=== PATIENT | female | born 1945 | race Caucasian/White ===

== ENCOUNTER 2023-11-09 02:59 | Emergency (ER) | payer BC, MEDICARE ==
[2023-11-09] MEDS ORDERED: Pantoprazole 40 MG VIAL ONE (03:34)
[2023-11-09] MEDS ORDERED: fentaNYL 50 mcg/mL 1 mL Vial ONE (03:34)
[2023-11-09 03:35] LABS: #Basophils 0.1 thou/uL (0.0-0.2); #Eosinphils 0.1 thou/uL (0.0-0.7); #Lymphocytes 1.5 thou/uL (1.20-3.40); #Monocytes 0.6 thou/uL (0.11-0.59); %Basophils 0.7 % (0.0-1.0); %Eosinophils 1.2 % (0.0-10.0); %Lymphocytes 16.2 % (21.0-51.0); %Monocytes 6.3 % (0.0-10.0); %Neutrophils 75.7 % (42.0-75.0); Hematocrit 42.4 % (36.0-47.0); Hemoglobin 14.5 g/dL (12.0-16.0); Mean Corpuscular HGB CONC 34.2 g/dL (32.0-36.0); Mean Corpuscular Hemoglobin 32.2 pg (27.0-31.0); Mean Corpuscular Volume 94.3 fl (78.0-98.0); Mean Platelet Volume 6.2 fL (7.4-10.4); Platelet Count 190 10x3/uL (130-400); RBC Distribution Width 11.6 % (11.5-14.5); Red Blood Cell (RBC) Count 4.49 mill/uL (4.20-5.40); White Blood Cell (WBC) Count 9.3 10x3/uL (4.8-10.8)
[2023-11-09 03:37] LABS: Bilirubin Negative (Negative); Blood, Urine Trace (Negative); Clarity Clear (Clear); Glucose, Urine (Dipstick) Negative (Negative); Ketone, Urine Negative (Negative); Leukocyte Negative (Negative); Nitrite Negative (Negative); Protein, Urine (Dipstick) Negative (Neg-Trace); Urobilinogen 0.2 mg/dL (Less than 2); pH, Urine 5.5 (5.0-9.0)
[2023-11-09 03:38] LABS: Specific Gravity, Urine 1.024 (1.002-1.036)
[2023-11-09 03:40] LABS: Bacteria/HPF None Seen HPF (None Seen); CAUTI Indications for Culture Pelvic or flank pain; RBC/HPF 0-3 HPF (0-3); WBC/HPF 0-3 HPF (0-3)
[2023-11-09 03:41] LABS: Urine Culture Reflex No No
[2023-11-09 03:49] LABS: Troponin I Less than 0.010 ng/mL (< 0.028)
[2023-11-09 03:50] LABS: ALT (SGPT) 26 U/L (8-55); AST (SGOT) 22 U/L (5-34); Albumin 3.7 g/dL (3.4-4.8); Alkaline Phosphatase 51 U/L (40-110); Anion Gap 15 mmol/L (10-20); BUN (Urea Nitrogen) 23 mg/dL (9.8-20.1); Bilirubin, Total 0.4 mg/dL (0.2-1.2); Calc. Creatinine Clearance 0 mL/min (70-130); Carbon Dioxide 23 mmol/L (23-31); Chloride 103 mmol/L (98-107); Estimated GFR 56; Globulin 2.9 g/dL (2.4-3.5); Glucose 127 mg/dL (83-110); Lipase 70 U/L (8-78); Potassium 3.4 mmol/L (3.5-5.1); Protein, Total 6.6 g/dL (5.8-8.1); Sodium 138 mmol/L (136-145)
[2023-11-09] MEDS ORDERED: metroNIDAZOLE 500 MG TAB ONE (04:29)
[2023-11-09] MEDS ORDERED: Cipro 250 MG TAB ONE (04:29)
[2023-11-09] MEDS ORDERED: Ketorolac Tromethamine 30 MG (1 mL) VIAL ONE (04:33)
[2023-11-09] MEDS ORDERED: Promethazine 25 MG TAB ONE (04:40)
[2023-11-09] MEDS ORDERED: Iopamidol 370 76% 100 ML VIAL ONE (09:00)
== END 2023-11-09 04:54 | disposition home or self-care (01) ==
LOC: NAV ERS 02:59
DX: K57.92 Diverticulitis of intestine, part unspecified, without perforation or abscess without bleeding (principal); I10 Essential (primary) hypertension; Z79.899 Other long term (current) drug therapy; Z87.891 Personal history of nicotine dependence
CPT/HCPCS: 71045; 74177; 80053; 81001; 83690; 84484; 85025; 93005; 96374; 96375; J1885; J2470; J3010; Q0169; Q9967